=== PATIENT | female | born 1985 | race Caucasian/White ===

== ENCOUNTER 2016-11-16 09:25 | Outpatient (CLI) | payer OTHER | END 2016-11-16 09:26 | DX: Z34.83 Encounter for supervision of other normal pregnancy, third trimester (principal) ==

== ENCOUNTER 2016-12-14 04:42 | Outpatient (CLI) | payer OTHER | END 2016-12-14 06:55 | disposition home or self-care (01) | DX: Z34.03 Encounter for supervision of normal first pregnancy, third trimester (principal) ==

== ENCOUNTER 2016-12-14 22:52 | Inpatient (IN) | payer OTHER ==
[2016-12-14] MEDS ORDERED: MORPHINE 10 MG/ML VIAL IM STA (23:09)
[2016-12-15] MEDS ORDERED: LACTATED RINGERS 1,000 ML IV ONE (03:38)
[2016-12-15] MEDS ORDERED: SODIUM CHLORIDE FLUSH 0.9% 10 ML SYRINGE IVP ONE (03:38)
[2016-12-15] MEDS ORDERED: SODIUM CHLORIDE FLUSH 0.9% 10 ML SYRINGE IVP PRN (04:03)
[2016-12-15] MEDS ORDERED: LACTATED RINGERS 1,000 ML IV SCH (05:00)
[2016-12-15] MEDS ORDERED: OXYTOCIN/LACTATED RINGERS 250 ML IV ONE ×2 (05:47→10:35)
[2016-12-15] MEDS ORDERED: LIDOCAINE 1% 50 ML MDV ONE (06:27)
[2016-12-15] MEDS ORDERED: MINERAL OIL LIGHT 10 ML MC ONE ×2 (07:57→10:34)
[2016-12-15] MEDS ORDERED: HYDROcod/ACETAM 5/325 MG TABLET PO PRN (10:37)
[2016-12-15] MEDS ORDERED: HYDROCORTISONE/PRAMOXINE 10 GM PR PRN (10:37)
[2016-12-15] MEDS ORDERED: WITCH HAZEL/GLYCERIN 1 EACH MED..PAD TOP PRN (10:37)
[2016-12-15] MEDS: IBUPROFEN 800 MG TABLET PO SCH ×3 (12:23→23:18)
[2016-12-16] MEDS: IBUPROFEN 800 MG TABLET PO SCH ×4 (05:13→22:33)
[2016-12-16] MEDS: DOCUSATE SODIUM 100 MG CAPSULE PO SCH ×2 (09:56→19:51)
[2016-12-16] MEDS: SODIUM CHLORIDE FLUSH 0.9% 10 ML SYRINGE IVP SCH (16:54)
[2016-12-17] MEDS: IBUPROFEN 800 MG TABLET PO SCH (05:31)
[2016-12-17] MEDS: DOCUSATE SODIUM 100 MG CAPSULE PO SCH (09:20)
== END 2016-12-17 11:15 | disposition home or self-care (01) | DRG 775 ==
PROC: 0DQR0ZZ Repair Anal Sphincter, Open Approach (ICD-10-PCS; principal; 2016-12-15)
PROC: 10E0XZZ Delivery of Products of Conception, External Approach (ICD-10-PCS; principal; 2016-12-15)
PROC: 10907ZC Drainage of Amniotic Fluid, Therapeutic from Products of Conception, Via Natural or Artificial Opening (ICD-10-PCS; principal; 2016-12-15)
DX: O77.0 Labor and delivery complicated by meconium in amniotic fluid (principal); O70.20 Third degree perineal laceration during delivery, unspecified; O69.81X0 Labor and delivery complicated by cord around neck, without compression, not applicable or unspecified; Z3A.40 40 weeks gestation of pregnancy; Z37.0 Single live birth

== ENCOUNTER 2018-10-16 08:00 | Outpatient (CLI) | payer OTHER ==
[2018-10-16 14:25] LABS: MUDS CUTOFF CONCENTRATIONS CUTOFF CONC BELOW:
[2018-10-16 14:56] LABS: AMPHETAMINE SCREEN,URINE NEGATIVE (NEGATIVE); BENZODIAZEPINES SCREEN, URINE NEGATIVE (NEGATIVE); COCAINE SCREEN URINE NEGATIVE (NEGATIVE); METHADONE SCREEN, URINE NEGATIVE (NEGATIVE); METHAMPHETAMINES SCREEN, URINE NEGATIVE (NEGATIVE); OPIATE SCREEN, URINE NEGATIVE (NEGATIVE); OXYCODONE SCREEN, URINE NEGATIVE (NEGATIVE); PROPOXYPHENE SCREEN, URINE NEGATIVE (NEGATIVE); TRICYCLIC ANTIDEPRESSANT,URINE NEGATIVE (NEGATIVE)
== END 2018-10-16 23:59 | disposition home or self-care (01) ==
LOC: LAB.R 08:00
PROVIDERS: ATTEND Registered Nurse
DX: Z33.1 Pregnant state, incidental (principal)
CPT/HCPCS: 80306; 87491; 87591

== ENCOUNTER 2018-10-16 12:12 | Outpatient (CLI) | payer OTHER ==
[2018-10-16 13:13] LABS: BASOPHILS % (AUTO) 0.3 %; EOSINOPHILS % (AUTO) 0.4 %; HGB - HEMOGLOBIN 12.7 g/dL (12.0-16.0); LYMPHOCYTES # (AUTO) 1.5 10^3/uL (1.5-3.5); LYMPHOCYTES % (AUTO) 15.7 %; MEAN CORPUSCULAR HEMOGLOBIN 31.3 pg (27.0-31.0); MEAN CORPUSCULAR HGB CONC 34.5 g/dL (32.0-36.0); MEAN CORPUSCULAR VOLUME 90.7 fL (81.0-99.0); MEAN PLATELET VOLUME 7.5 fL (7.9-10.8); MONOCYTES # (AUTO) 0.5 10^3/uL (0.0-1.0); MONOCYTES % (AUTO) 5.3 %; NEUTROPHILS # (AUTO) 7.4 10^3/uL (1.5-6.6); NEUTROPHILS % (AUTO) 78.3 %; PLT - PLATELET COUNT 312 10^3/uL (130-450); RED BLOOD COUNT 4.07 10^6/uL (4.20-5.40); RED CELL DISTRIBUTION WIDTH 13.1 % (12.0-15.0); WHITE BLOOD COUNT 9.5 x10^3/uL (4.8-10.8)
[2018-10-16 14:02] LABS: BILIRUBIN,URINE NEGATIVE (NEGATIVE); GLUCOSE, URINE (UA) NEGATIVE (NEGATIVE); KETONES,URINE (UA) NEGATIVE (NEGATIVE); LEUKOCYTE ESTERASE, URINE NEGATIVE (NEGATIVE); NITRITE,URINE NEGATIVE (NEGATIVE); OCCULT BLOOD,URINE NEGATIVE (NEGATIVE); PROTEIN,URINE NEGATIVE (NEGATIVE); UROBILINOGEN,URINE 0.2 (NORMAL) E.U./dL (NORMAL)
[2018-10-16 14:22] LABS: BACTERIA,URINE None Seen /HPF (None Seen); CLARITY,URINE CLEAR (CLEAR); RBC,URINE None Seen /HPF (0-5); SQUAMOUS EPITHELIAL CELL,UR MANY Squamous (<= Few)
[2018-10-17 12:41] LABS: HEPATITIS C ANTIBODY NON-REACTIVE (NON-REACTIVE)
[2018-10-17 12:56] LABS: HEPATITIS B SURFACE ANTIGEN NON-REACTIVE (NON-REACTIVE)
[2018-10-17 14:26] LABS: HIV AG/AB 4TH GEN NON-REACTIVE (NON-REACTIVE)
== END 2018-10-16 12:13 | disposition home or self-care (01) ==
LOC: LAB 12:12
PROVIDERS: ATTEND Registered Nurse
DX: Z33.1 Pregnant state, incidental (principal)
CPT/HCPCS: 36415; 80306; 81001; 81599; 85025; 86762; 86803; 86850; 86900; 86901; 87086; 87340; 87389; 87491; 87591

== ENCOUNTER 2019-04-08 07:50 | Outpatient (CLI) | payer OTHER ==
--- NOTE | 2019-04-08 12:16 | Ultrasound Report ---
Reason: UTERINE SIZE DATE DISCREPANCY,THIRD TRIMESTER Procedure Date: 04/08/2019 Accession Number: [id number] / [id number] Procedure: US - OB F/U or Repeat CPT Code: FULL RESULT: EXAM: FOLLOW-UP OBSTETRICAL ULTRASOUND EXAM DATE: 04/08/2019 08:34 AM. CLINICAL HISTORY: UTERINE SIZE DATE Discrepancy, third TRIMESTER. COMPARISON: None. TECHNIQUE: Real-time sonographic evaluation of the fetus performed by the hairpiece stylist. Additional transvaginal imaging to more accurately evaluate cervical length/placental position/etc. Multiple risk control representative static images were saved for review. DATING: Established EGA 35 weeks 6 days with MAR 05/07/2019 based on provider information.. EGA 35 weeks 2 days with MAR 05/11/2019 based on the current ultrasound. GENERAL EVALUATION Ornelas . Cardiac activity: 175 bpm. movement: Present Presentation: Cephalic. Placenta: Anterior position. Amniotic fluid: Normal. ALEXIS 8.5 cm. MVP 2.6 cm. BIOMETRY Bi-Parietal Diameter (BPD): 8.5 cm, 34 weeks 1 day Head Circumference (HC): 32.2 cm, 36 weeks 2 days Abdominal Circumference (AC): 31.4 cm, 35 weeks 2 days Femur Length (FL): 6.9 cm, 35 weeks 3 days Estimated Weight: 2651 g, 36th percentile. ANATOMY Not assessed today. MATERNAL STRUCTURES Cervix 4.3 cm. IMPRESSION: 1. Ornelas intrauterine with gestational age 35 weeks 2 days, MAR 05/11/2019, based on current ultrasound. 2. Estimated weight is within expected limits for assigned dating. RADIA
== END 2019-04-08 07:51 | disposition home or self-care (01) ==
LOC: DI 07:50
PROVIDERS: ATTEND Nurse Practitioner Obstetrics & Gynecology
DX: O26.843 Uterine size-date discrepancy, third trimester (principal); Z3A.35 35 weeks gestation of pregnancy; Z36.85 Encounter for antenatal screening for Streptococcus B
CPT/HCPCS: 76816; 87491; 87591; 87661; 87797

== ENCOUNTER 2019-04-08 15:53 | Outpatient (CLI) | payer OTHER ==
[2019-04-08 22:43] LABS: TRICHOMONAS VAGINALIS DNA NEGATIVE (NEGATIVE)
== END 2019-04-08 23:59 | disposition home or self-care (01) ==
LOC: LAB.R 15:53
PROVIDERS: ATTEND Nurse Practitioner Obstetrics & Gynecology
DX: Z36.85 Encounter for antenatal screening for Streptococcus B (principal)
CPT/HCPCS: 87491; 87591; 87661; 87797

== ENCOUNTER 2019-04-25 14:38 | Outpatient (CLI) | payer OTHER ==
[2019-04-26 03:54] LABS: CANDIDA GROUP DNA POSITIVE (NEGATIVE); CANDIDA KRUSEI DNA NEGATIVE (NEGATIVE); TRICHOMONAS VAGINALIS DNA NEGATIVE (NEGATIVE)
== END 2019-04-25 23:59 | disposition home or self-care (01) ==
LOC: LAB.R 14:38
PROVIDERS: ATTEND Nurse Practitioner Obstetrics & Gynecology
DX: N76.0 Acute vaginitis (principal)
CPT/HCPCS: 87661; 87801

== ENCOUNTER 2019-05-06 02:20 | Inpatient (IN) | payer OTHER ==
[2019-05-06] MEDS ORDERED: AMPICILLIN 2 GM in SODIUM CHLORIDE 0.9% MINIBAG 100 ML IV ONE (04:09)
[2019-05-06] MEDS ORDERED: SODIUM CHLORIDE FLUSH 0.9% 10 ML SYRINGE IVP PRN (04:09)
[2019-05-06 04:54] LABS: BASOPHILS % (AUTO) 0.3 %; EOSINOPHILS % (AUTO) 0.2 %; HGB - HEMOGLOBIN 13.1 g/dL (12.0-16.0); LYMPHOCYTES # (AUTO) 1.9 10^3/uL (1.5-3.5); MEAN CORPUSCULAR HEMOGLOBIN 31.1 pg (27.0-31.0); MEAN CORPUSCULAR HGB CONC 33.5 g/dL (32.0-36.0); MEAN CORPUSCULAR VOLUME 92.9 fL (81.0-99.0); MEAN PLATELET VOLUME 10.3 fL (7.9-10.8); MONOCYTES # (AUTO) 0.7 10^3/uL (0.0-1.0); MONOCYTES % (AUTO) 6.4 %; NEUTROPHILS # (AUTO) 8.5 10^3/uL (1.5-6.6); PLT - PLATELET COUNT 275 10^3/uL (130-450); RED BLOOD COUNT 4.21 10^6/uL (4.20-5.40); RED CELL DISTRIBUTION WIDTH 14.3 % (12.0-15.0); WHITE BLOOD COUNT 11.3 x10^3/uL (4.8-10.8)
[2019-05-06] MEDS ORDERED: LACTATED RINGERS 1,000 ML IV SCH (05:00)
[2019-05-06] MEDS ORDERED: OXYTOCIN/DEXTROSE 5 % 30 UNIT/500 ML BAG IV ONE (06:49)
[2019-05-06] MEDS ORDERED: ONDANSETRON 4 MG/2 ML VIAL IVP PRN (07:29)
--- NOTE | 2019-05-06 07:49 | HISTORY & PHYSICAL EXAMINATION ---
Admit History - Visit Reason Visit Reason: Contractions - : 2 Parity: 1 Premature: 0 Ectopic: 0 : 0 Care: positive: [facility] Risk/History: positive: None Complications This : positive: None Smoking Status: Never smoker - Mother's Labs Mother's Blood Type: positive: A Mother's RH: positive: Positive GBS: positive: Group B Strep Positive Rubella Status: positive: Immune Meds/Allgy - Allergies Allergies/Adverse Reactions: Allergies Allergy/AdvReac Type Severity Reaction Status Date / Time No Known Drug Allergies Allergy Verified 12/14/16 23:18 Review of Systems - Constitutional Constitutional: denies: Fatigue, Fever, Chills, Malaise - Eyes Eyes: denies: Blurred vision, Spots in vision, Dipolpia - Cardiovascular Cariovascular: denies: Palpitations, Chest pain, Edema - Respiratory Respiratory: denies: Cough, SOB at rest - Gastrointestinal Gastrointestinal: denies: Abdominal pain, Constipation, Diarrhea, Nausea, Vomiting - Integumentary Integumentary: denies: Rash, Pruritis - Neurological Neurological: denies: Headache - Psychiatric Psychiatric: denies: Depression, Anxiety Physical - Abdominal Exam Vital Signs: Temp Pulse Resp BP Pulse Ox 36.4 C L 84 18 114/77 100 05/06/19 02:32 05/06/19 02:32 05/06/19 02:32 05/06/19 02:32 05/06/19 02:32 Contraction Frequency (min/apart): 2-4 Contraction Intensity: positive: Strong Uterine Resting Tone: positive: Soft - Monitoring Heart Rate Baseline: 140 Strip Review: positive: Category I - Presentation Presentation: positive: Vertex - Vaginal Exam Membranes: positive: Membranes intact Dilation (in cm): 4 Effacement (%): 90 Station: positive: -2 Cervical Position: positive: Midposition - Speculum Exam Speculum Exam Performed: positive: No Plan for Labor - Plan For Labor I expect patient to be DC'd or transferred within 96 hours.: Yes Plan for Labor: HPI: Tomas 33yo @ 39.6wks gestation by LMP presents on 05/06/2019 at approximately 0230 with c/o contractions. She reports the contractions have increased in frequency and intensity throughout the night. She reports scant amount of bloody show over the past couple of hours. She denies vaginal leakage of fluid. Reports +FM. Upon arrival she was noted to be 2-/-2, vertex with intact membranes. She then progressed to /-2, vertex with intact membranes and she was admitted for expectant management. Her has been complicated only by size<dates and her growth and ALEXIS were WNL revealed EFW 36th percentile. She is noted to be GBS positive and will receive intrapartum prophylaxis per protocol. Dating criteria: LMP 07/31/2018 Initial U/S in first trimester - agrees Serial exams - agree OB Hx: G1: 12/15/2016 40.0wks gestation, , 7.15lbs, unmedicated, Male - [facility]. Complications: 3rd degree perineal laceration G2: Current: AMA PMHx: Advanced maternal age; with 3rd degree perineal laceration Surgical Hx: Humphrey Teeth removal Social Hx: No ETOH or IVDA. Never smoker. 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 Family Hx: Hypertension - father Medications: PNV: Diflucan Allergies: NKDA Labs: Blood type: A positive, antibody neg Hgb: 12.1 Hct: 38.7 PLT: 294 Rubella immune RPR non-reactive HIV neg Hep B neg Hep C neg Urine culture neg UTOX neg GC/CT neg Genetic Screening: [place] neg 1 hour GTT 90 Antibody neg GBS POSITIVE Immunizations: Tdap 02/14/2019 Ultrasounds: Initial ultrasound c/w LMP dating 12/20/2018 FAS Level II w/ MFM WNL. Anterior placenta, no previa. ALEXIS WNL. 3VC. Size c/w dating. 04/15/2019 Growth and ALEXIS indicated for size<dates WNL. EFW 36th percentile Physical Exam: Normocephalic, atraumatic Heart RRR w/o M/G/R Lungs CTAB Abdomen gravid, soft and nontender SVE /-2, midposition, vertex, intact membranes FHR baseline 140s, moderate variability, + accels, no decels Contractions palpate strong every 2-4 minutes with soft resting tone Bilateral LE's no edema Mood is good; breathing through contractions on exercise ball at the bedside and mother supportive at the bedside Assessment: 33yo @ 39.6wks gestation by LMP FHR Category I GBS positive - s/p loading dose of intrapartum antibiotics for prophylaxis per protocol Active labor Plan: Intermittent heart rate auscultation Continue IPAP for GBS prophylaxis per protocol Encouraged ambulation and frequent position changes Continue expectant management Anticipate spontaneous vaginal delivery
[2019-05-06] MEDS ORDERED: AMPICILLIN 1 GM in SODIUM CHLORIDE 0.9% MINIBAG 100 ML IV SCH (08:00)
[2019-05-06] MEDS ORDERED: SODIUM CHLORIDE FLUSH 0.9% 10 ML SYRINGE IVP SCH (09:00)
[2019-05-06] MEDS ORDERED: LIDOCAINE-MPF 1% 30 ML VIAL ONE (09:08)
[2019-05-06] MEDS ORDERED: miSOPROStol 200 MCG TABLET ONE (09:08)
[2019-05-06] MEDS ORDERED: LIDOCAINE 1% 50 ML MDV TD ONE (10:24)
[2019-05-06] MEDS ORDERED: WITCH HAZEL/GLYCERIN 1 PAD TOP PRN (11:06)
[2019-05-06] MEDS ORDERED: OXYTOCIN/DEXTROSE 5 % 30 UNIT/500 ML BAG IV PRN (11:08)
--- NOTE | 2019-05-06 11:19 | DELIVERY NOTE ---
Delivery Note - Labor Labor: positive: Spontaneous - Delivery Method Delivery Method: positive: Spontaneous vaginal delivery - Presentation Presentation: positive: Vertex, Compound, DORIS - right occiput anterior - Nuchal Cord Nuchal Cord: positive: None - Amniotic Fluid Description Amniotic Fluid Description: positive: Clear - Episiotomy Type Episiotomy Type: positive: None - Laceration Laceration: positive: 1st degree - Suture Suture Type: positive: Vicryl Suture Size: positive: 3-0 - Delivery Outcome Delivery Outcome: positive: Livebirth - [place]: positive: Placed in direct skin contact with mother, Stimulated, Warmed, Elkin used [place] sex: positive: Male - Cord Cord: positive: 3 vessels - Placenta Placenta: positive: Intact, Spontaneous - Estimated Blood Loss Estimated Blood Loss (in cc): 300 - Post Delivery Events Post Delivery Events: positive: No post delivery events - Delivery Comments (Free Text/Narrative) Delivery Comments (Free Text/Narrative): Labor: This 33yo @ 39.6wks gestation by LMP presented on 05/06/2019 @ 0230 in early labor. Cervix was 2-3/75/-2, and vertex with intact membranes. FHR pattern demonstrated Category I pattern. Normal labor course. Patient progressed to c/c/+1 with SROM at 0952 and was noted to be a moderate amount of clear f luid. Spontaneous urge to push at 1014. Normal of viable male on 05/06/2019 @ 1024. No nuchal cord. [place] was placed on maternal abdomen, stimulated, dried, and placed skin to skin. Derrick shannon administered via IV for hemostasis. Apgars were 9/9 at 1 and 5 min respectively. The umbilical cord was allowed to stop pulsating at which time it was doubly clamped by CNM and cut by FOB. Cord blood was obtained. 3VC. Placenta delivered spontaneously and intact at 1029. EBL 300mL. Uterine fundus firm and there is no excessive bleeding. The perineum, vagina, and cervix were inspected and found to have first degree perineal laceration which was repaired with a 3-[address]1 needle, in standard fashion, under sterile conditions. Vaginal examination following repair was done. Tissues well approximated. initiated. Family bonding well. Both mother and baby were left in stable condition.
[2019-05-06] MEDS: IBUPROFEN 800 MG TABLET PO SCH ×2 (11:46→18:08)
[2019-05-06] MEDS: ACETAMINOPHEN 500 MG TABLET PO SCH ×2 (11:46→20:03)
[2019-05-06] MEDS ORDERED: HYDROCORTISONE 1% CREAM 28 GM TUBE PR PRN (12:00)
[2019-05-06] MEDS: DOCUSATE SODIUM 100 MG CAPSULE PO SCH (20:04)
[2019-05-07] MEDS: IBUPROFEN 800 MG TABLET PO SCH ×3 (00:16→13:36)
[2019-05-07] MEDS: ACETAMINOPHEN 500 MG TABLET PO SCH ×2 (04:56→13:36)
--- NOTE | 2019-05-07 07:25 | Discharge Plan ---
Discharge Plan Problem Reviewed?: Yes Disposition: Home, Self Care Condition: Good Diet: Regular Activity Restrictions: No Restrictions Shower Restrictions: No Driving Restrictions: No Weight Bearing: Full Weight No Smoking: If you smoke, Please STOP! Call for help. Follow-up with: Sofiya Stroud CNM, ARNP [Provider Admit Priv/Credential] -
--- NOTE | 2019-05-07 07:28 | PROVIDER PROGRESS NOTE ---
Subjective - Subjective Subjective: FINAL PROGRESS NOTE: S: BOnding well with baby. without difficulty. Pain well controlled with oral medications. Bleeding decreased and is light. Desires to go home today. O: BP 100/68, HR 92, T 36.4, RR 18 Heart RRR w/o M/G/R, lungs CTAB, abdomen soft and nontender with fundus firm at U-1, perineum intact, bilateral LE's no edema. A: 33yo -->P1 PPD#1 s/p TSVD of viable male infant 1st degree perineal laceration - intact P: Reviewed self care and warning s/sx Advised continuation of PNV while Advised continuation of ibuprofen and tylenol for pain management OTC PRN pain Return in 1 week for support visit if needed and in 3 weeks for routine pp visit. Pt verbalized understanding and agrees to above plan. She denies further questions or concerns at this time. Objective - Vital Signs/Intake & Output Vital Signs: Vital Signs x48h Temp Pulse Resp BP Pulse Ox 05/07/19 04:39 36.4 C L 92 18 100/68 99 Intake & Output: Intake & Output 05/04/19 05/05/19 05/06/19 05/07/19 23:59 23:59 23:59 23:59 Intake Total 2900.0 Output Total 1400 Balance 1500.0 - Lab Results Fish Bones: 05/06/19 04:40
--- NOTE | 2019-05-07 07:39 | DISCHARGE SUMMARY ---
Physician: MARTIN Javed DATE OF ADMISSION: 05/06/2019 DATE OF DISCHARGE: 05/07/2019 DIAGNOSES ON ADMISSION 1. A 33-year-old G2, P1-0-0-1 at 39.6 weeks' gestation. 2. Active labor. 3. Group B streptococcus positive. DIAGNOSES ON DISCHARGE 1. A 33-year-old G2, P2-0-0-2 status post spontaneous vaginal delivery on 05/06/2019. 2. . 3. Normal recovery. HISTORY OF PRESENT ILLNESS: She is a patient at [facility] who presented on 05/06/2019 in early labor. Cervix was 2-3 cm dilated, 75% effaced, and -2 station in a vertex position with intact membranes. Patient received 2 doses of ampicillin for treatment of GBS positive status period per protocol. Patient progressed to spontaneously deliver a viable male on 05/06/2019 at 10:24. Apgars were 9 and 9 at one and five minutes respectively. EBL 300 mL The perineum, vagina, and cervix were inspected and found to have first-degree perineal laceration, which was repaired with 3-0 Vicryl on a CT1 needle in standard fashion under sterile conditions. She has been doing well in her course. She is ambulating and tolerating a regular diet. She is urinating without difficulty, and her lochia is normal. Her pain is well controlled with oral medications. She will be discharged home today on day #1 with instructions to continue her vitamin while , and to take ibuprofen and Tylenol [id number] as needed for pain management. She intends to follow up with myself at [facility] in 1 week for support visit and in 3 weeks for a routine visit. She has been given precautions to call if she has any worsening fevers, chills, abdominal pain, increased bleeding, or foul-smelling vaginal lochia. TD: 05/07/2019 07:33 ALEXIS
[2019-05-07] MEDS: DOCUSATE SODIUM 100 MG CAPSULE PO SCH (07:53)
[2019-05-07 08:11] VITALS: BP 97/75
--- NOTE | 2019-05-07 15:28 | Labor Flowsheet ---
Labor Flowsheet Datetime Report Generated by CPN: 05/07/2019 15:28 Datetime: 05/07/2019 07:55 VITAL SIGNS NBP Sys/Bre/Mean (mmHg): 97 : 75 : 79 Pulse: 78 LaborFlag: Labor Datetime: 05/06/2019 10:29 STAGE 2 Stage 2 Comments: Placenta delivered intact, for routine discard Datetime: 05/06/2019 10:24 Oxygen Method: Room Air Datetime: 05/06/2019 10:13 Monitor Interventions for FHR: Ultrasound Adjusted Variability: Minimal - Undetectable to <=5 bpm Datetime: 05/06/2019 10:10 UTERINE ACTIVITY Monitor Mode: Palpation Frequency (min): 2-3 Quality: Strong Duration (sec): 60-90 Pattern: Normal: <= 5 Contractions in 10 Minutes Resting Tone (Palpate): Relaxed ASSESSMENT A Monitor Mode: Doppler FHR Baseline Rate : 132 Accelerations: None Decelerations: Variable Actions for Decelerations: Sofiya Maximus at the perineum. Encouraged patient to deep breath. Now a left tilt and bringing legs back. Instructed to start pushing when she feels ready. Category: Category II Comments: Dopple of FHR with decel heard down to 108 with a contraction. Explained that the US mon itor is going to be placed to be able to assess baby closer. Datetime: 05/06/2019 09:52 VAGINAL EXAM Dilatation (cm): 10.0 Effacement (%): 100 Station: 1 Exam by: Ada Felizr CNRuben Datetime: 05/06/2019 09:41 Stage of : Labor Pain Presence: Intermittent Pain Type: Cramping Pain Location: Abdomen; Back; Perineum Pain Relief Measures: Comfort Measures (Annotations: started using nitrous oxide. Instructed in us e,) Pain Coping: Breathing Through Contractions; Other (Annotations: Nitrous started 0938) Datetime: 05/06/2019 09:21 Respirations: 20 Temperature (C): 36.1 Datetime: 05/06/2019 08:47 Vital Sign Comments: Pain Assessment Comments: Wants a natural labor. Sofiya Stroud CNM at the bedside for support. Husb and Bhargav, and mom in the room offering support. Continues to cope well with contractions. Denies n eeds at this time. MEDICATIONS Antibiotics: Ampicillin IV 1 Gm PATIENT CARE IV/Blood Work: IV Infusing per Order COMMUNICATION Communication: RN at Bedside; Provider at Bedside Provider Notified (Name): Sofiya Stroud CNRuben Notification Reason: Other (Annotations: Sofiya Maximus remains at the bedside providing 1:1 support.) Datetime: 05/06/2019 08:04 Patient Position/Activity: Left Lateral; Low Fowlers; High Fowlers; Birthing Ball Comfort Measures: Breathing/Relaxation; Family Support Patient Care Comments: Sofiya Maximus CNM remaining at the bedside for labor support. Datetime: 05/06/2019 07:36 SpO2 (%): 99 Membrane Status: Intact Amniotic Fluid Amount: None MATERNAL ASSESSMENT Level of Consciousness: Fully Conscious DTR's/Clonus: DTRs 2+; No Clonus Headache: Denies Breath Sounds, Left: Clear and Equal Breath Sounds, Right: Clear and Equal Nausea/Vomiting: Denies RUQ Epigastric Pain: Denies PRE-INDUCTION CHECKLIST Orders on Chart: Yes H Record Available: Yes Gestational Age Documented: Yes TEACHING Instructional Method: Verbal; Verbalized Understanding Plan of Care: Plan of Care Discussed Pain Management: Comfort Measures Nurse Giving Report: Gely Simmons RN Nurse Receiving Report: Kori D RNC Datetime: 05/06/2019 04:57 Membranes Ruptured Date/Time: 05/06/2019 09:52 Membranes Rupture Method: Spontaneous Amniotic Fluid Color: Clear Amniotic Fluid Odor: Normal Datetime: 05/06/2019 04:53 Hygiene: Complete Bath Datetime: 05/06/2019 04:44 Contraction Comments: Pt breathing through ctx PAIN Pain Scale: 8 Unit Routine: [place] to Room; Call [place]; Bed; Security; Monitoring Labor/Induction: Labor Stages Medications: Antibiotics
== END 2019-05-07 14:00 | disposition home or self-care (01) | DRG 807 ==
LOC: WFO 02:20 → FBP 02:23 → WFO 04:08 → FBP 04:09 → INTOOBSV 06:44 → OBSVTOIN 06:44 → UNDODISIN 05-07 14:00
PROVIDERS: ADMIT Nurse Practitioner Obstetrics & Gynecology; ATTEND Nurse Practitioner Obstetrics & Gynecology
PROC: 10E0XZZ Delivery of Products of Conception, External Approach (ICD-10-PCS; principal; 2019-05-06)
PROC: 0HQ9XZZ Repair Perineum Skin, External Approach (ICD-10-PCS; 2019-05-06)
DX: O99.824 Streptococcus B carrier state complicating childbirth (principal); O70.0 First degree perineal laceration during delivery; Z37.0 Single live birth; Z3A.39 39 weeks gestation of pregnancy
CPT/HCPCS: 85025; 96361; 96365; 99213; A9270; G0378; J7120